=== PATIENT | male | born 1955 | race African-American/Black ===

== ENCOUNTER 2018-01-18 03:40 | Emergency (ER) | payer OTHER, BC ==
[2018-01-18 03:49] VITALS: BP 172/96
--- NOTE | 2018-01-18 08:40 | EKG REPORT ---
SEVERITY:- ABNORMAL ECG - SINUS RHYTHM LEFT BUNDLE BRANCH BLOCK : Confirmed by: Deidre Ramirez 18-Jan-2018 08:39:58
== END 2018-01-18 04:30 | disposition left against medical advice (07) ==
LOC: ER 03:40
DX: Z53.21 Procedure and treatment not carried out due to patient leaving prior to being seen by health care provider (principal)
CPT/HCPCS: 93005; 93010